=== PATIENT | female | born 1970 | race Caucasian/White ===

== ENCOUNTER 2019-06-08 13:01 | Emergency (ER) | payer OTHER ==
[~2019-06-08] VITALS: Ht 147.3 cm; Wt 75.8 kg
[~2019-06-08 13:01] MED LIST: Flonase 0.05% N16 GM
== END 2019-06-08 15:20 | disposition home or self-care (01) ==
LOC: ER 13:01
DX: G43.909 Migraine, unspecified, not intractable, without status migrainosus (principal); F17.210 Nicotine dependence, cigarettes, uncomplicated; Z91.048 Other nonmedicinal substance allergy status; Z91.040 Latex allergy status
CPT/HCPCS: 96361; 96374; 96375; 99283-25; J0780; J1200; J1885; J7030

== ENCOUNTER 2020-04-08 07:34 | Day surgery (SDC) | payer OTHER ==
--- NOTE | 2020-04-08 08:34 | NUR ---
Ambulatory in Day Surgery History, Chart, Medications and Allergies reviewed before start of procedure. Lungs clear T/O to Auscultation. Patient confirms NPO status and agrees with scheduled surgery. Pre-Op teaching done. Pt verbalizes understanding.
--- NOTE | 2020-04-08 09:19 | NUR ---
Patient up to Ambulate independently. Gait steady. Discharge instructions reviewed with patient. Patient verbalizes understanding. Copy given to patient to take home.
== END 2020-04-08 23:13 | disposition home or self-care (01) ==
LOC: ORD 07:34 → CT 07:34 → ORD 08:30 → CT 09:00 → ORD 23:13
DX: R06.09 Other forms of dyspnea (principal); I20.9 Angina pectoris, unspecified; Q24.5 Malformation of coronary vessels; E66.9 Obesity, unspecified; Z87.891 Personal history of nicotine dependence; Z88.8 Allergy status to other drugs, medicaments and biological substances; Z91.040 Latex allergy status; Z68.37 Body mass index [BMI] 37.0-37.9, adult
CPT/HCPCS: 75574; Q9967

== ENCOUNTER 2020-06-23 12:44 | Day surgery (SDC) | payer OTHER ==
[~2020-06-23] VITALS: Wt 77.6 kg
[~2020-06-23 12:44] MED LIST changes: +ATIVAN0.5 MG PO; +HYDCHL12.5 PO; +MAXALT10 MG PO; +MELO7.5 PO; +OXYB5 PO
== END 2020-06-23 15:34 | disposition home or self-care (01) ==
LOC: ORSCSDS 12:44
PROVIDERS: Surgery
PROC: 0HB1XZX Excision of Face Skin, External Approach, Diagnostic (ICD-10-PCS; principal; 2020-06-23 14:00)
DX: L72.0 Epidermal cyst (principal); Z87.891 Personal history of nicotine dependence; E66.9 Obesity, unspecified; Z68.35 Body mass index [BMI] 35.0-35.9, adult
CPT/HCPCS: 88304; J0690; J1100; J1885; J2250; J2405; J2704; J3010; J7120

== ENCOUNTER 2020-10-24 10:40 | Emergency (ER) | payer OTHER ==
[~2020-10-24] VITALS: Ht 147.3 cm; Wt 79.4 kg
[2020-10-24 11:20] LABS: BASOPHILS ABSOLUTE AUTO 0.04 K/mm3 (0.00-0.23); BASOPHILS PERCENT AUTO 1 % (0-2); EOSINOPHILS ABSOLUTE AUTO 0.12 K/mm3 (0.00-0.68); EOSINOPHILS PERCENT AUTO 2 % (0-6); Hemoglobin 13.8 g/dL (11.5-16.0); IMMATURE GRAN ABSOLUTE AUTO 0.01 K/mm3 (0.00-0.10); IMMATURE GRAN PERCENT AUTO 0 % (0-1); LYMPHOCYTES ABSOLUTE AUTO 2.43 K/mm3 (0.84-5.20); LYMPHOCYTES PERCENT AUTO 39 % (21-46); MONOCYTES ABSOLUTE AUTO 0.45 K/mm3 (0.16-1.47); MONOCYTES PERCENT AUTO 7 % (4-13); Mean Corpuscular HGB 32.2 pg (26.0-34.0); Mean Corpuscular HGB Conc 35.4 g/dL (31.5-36.5); Mean Corpuscular Volume 91 fL (80-100); Mean Platelet Volume 11.2 fL (9.1-12.4); NEUTROPHILS ABSOLUTE AUTO 3.25 K/mm3 (1.96-9.15); NEUTROPHILS PERCENT AUTO 52 % (41-73); Platelet Count 292 K/mm3 (150-400); RDW Coefficient Variation 11.8 % (11.7-14.2); Red Blood Cell Count 4.29 M/mm3 (3.80-5.20)
[2020-10-24 11:34] LABS: Alanine Aminotransfer (ALT/SGP 43 U/L (12-78); Albumin/Globulin Ratio 1.2 (0.8-1.8); Alk Phos 95 U/L (50-136); Anion Gap 7 mmol/L (6-16); Aspartate Aminotrans (AST/SGOT 26 U/L (12-37); Bilirubin, Total 0.5 mg/dL (0.1-1.0); Blood Urea Nitrogen 17 mg/dL (8-24); Bun/Creatinine Ratio 28.9 (12.0-20.0); CO2, Blood 24 mmol/L (21-32); Calcium, Blood 8.5 mg/dL (8.5-10.1); Chloride, Blood 103 mmol/L (98-108); Creatinine, Blood 0.59 mg/dL (0.40-1.00); Globulin, Blood 3.3 g/dL (2.2-4.0); Glomerular Filtration Rate >60 (60-); Glucose, Blood 101 mg/dL (70-99); Potassium, Blood 3.5 mmol/L (3.5-5.5); Sodium, Blood 134 mmol/L (136-145); Total Protein, Blood 7.3 g/dL (6.4-8.2); Troponin I <0.015 ng/mL (0.000-0.040)
== END 2020-10-24 15:06 | disposition home or self-care (01) ==
LOC: ER 10:40
PROVIDERS: Physician Assistant
DX: R07.9 Chest pain, unspecified (principal); Z91.040 Latex allergy status; Z91.09 Other allergy status, other than to drugs and biological substances
CPT/HCPCS: 36415; 71046; 80053; 84484; 85025; 93005; 93010; 99285-25

== ENCOUNTER 2021-10-16 15:12 | Emergency (ER) | payer OTHER ==
[~2021-10-16] VITALS: Ht 147.3 cm; Wt 79.4 kg
[2021-10-16 15:48] LABS: BASOPHILS ABSOLUTE AUTO 0.06 K/mm3 (0.00-0.23); BASOPHILS PERCENT AUTO 1 % (0-2); EOSINOPHILS ABSOLUTE AUTO 0.14 K/mm3 (0.00-0.68); EOSINOPHILS PERCENT AUTO 2 % (0-6); Hematocrit 40.8 % (33.0-51.0); Hemoglobin 14.8 g/dL (11.5-16.0); IMMATURE GRAN ABSOLUTE AUTO 0.01 K/mm3 (0.00-0.10); IMMATURE GRAN PERCENT AUTO 0 % (0-1); LYMPHOCYTES ABSOLUTE AUTO 3.17 K/mm3 (0.84-5.20); LYMPHOCYTES PERCENT AUTO 37 % (21-46); MONOCYTES ABSOLUTE AUTO 0.48 K/mm3 (0.16-1.47); MONOCYTES PERCENT AUTO 6 % (4-13); Mean Corpuscular HGB 32.3 pg (26.0-34.0); Mean Corpuscular HGB Conc 36.3 g/dL (31.5-36.5); Mean Corpuscular Volume 89 fL (80-100); Mean Platelet Volume 10.7 fL (9.1-12.4); NEUTROPHILS ABSOLUTE AUTO 4.72 K/mm3 (1.96-9.15); NEUTROPHILS PERCENT AUTO 55 % (41-73); Platelet Count 304 K/mm3 (150-400); RDW Coefficient Variation 11.6 % (11.7-14.2); RDW Standard Deviation 37.5 fL (35.1-46.3); Red Blood Cell Count 4.58 M/mm3 (3.80-5.20); White Blood Cell Count 8.58 K/mm3 (4.00-11.30)
[2021-10-16 16:06] LABS: Albumin, Blood 3.7 g/dL (3.4-5.0); Albumin/Globulin Ratio 1.2 (0.8-1.8); Bilirubin, Total 0.5 mg/dL (0.1-1.0); Bun/Creatinine Ratio 23.4 (12.0-20.0); Calcium, Blood 8.7 mg/dL (8.5-10.1); Creatinine, Blood 0.6 mg/dL (0.40-1.00); Globulin, Blood 3.2 g/dL (2.2-4.0); Potassium, Blood 3.7 mmol/L (3.5-5.5); Total Protein, Blood 6.9 g/dL (6.4-8.2)
== END 2021-10-16 18:55 | disposition home or self-care (01) ==
LOC: ER 15:12
PROVIDERS: Physician Assistant
DX: M62.838 Other muscle spasm (principal); R07.89 Other chest pain; Z87.891 Personal history of nicotine dependence; Z91.040 Latex allergy status; Z91.09 Other allergy status, other than to drugs and biological substances; Z79.899 Other long term (current) drug therapy
CPT/HCPCS: 36415; 71045; 80053; 84484; 85025; J1885

== ENCOUNTER 2021-11-16 12:12 | Inpatient (IN) | payer OTHER ==
[~2021-11-16] VITALS: Ht 147.3 cm; Wt 78.2 kg
[2021-11-16 12:35] LABS: Hematocrit 38.7 % (33.0-51.0); Hemoglobin 14.2 g/dL (11.5-16.0); Mean Corpuscular HGB 32.1 pg (26.0-34.0); Mean Corpuscular HGB Conc 36.7 g/dL (31.5-36.5); Mean Corpuscular Volume 87 fL (80-100); Mean Platelet Volume 11.2 fL (9.1-12.4); Platelet Count 366 K/mm3 (150-400); RDW Coefficient Variation 11.7 % (11.7-14.2); RDW Standard Deviation 37.2 fL (35.1-46.3); Red Blood Cell Count 4.43 M/mm3 (3.80-5.20); White Blood Cell Count 14.94 K/mm3 (4.00-11.30)
[2021-11-16 12:40] LABS: Calcium, Ionized (POC) 1.09 mmol/L (1.10-1.46); Chloride (POC) 95 mmol/L (98-108); Creatinine (POC) 0.8 mg/dL (0.6-1.0); Glucose (ISTAT POC) 206 mg/dL (70-99); Hemoglobin (POC) 13.3 g/dL (12.0-16.0); Potassium (POC) 2.7 mmol/L (3.5-5.5); Sodium (POC) 135 mmol/L (135-148); Total CO2 (POC) 26 mmol/L (21-32)
[2021-11-16 12:58] LABS: BAND PERCENT MAN 1 % (0-8); BASOPHILS PERCENT MAN 0 % (0-2); EOSINOPHILS ABSOLUTE MAN 0.14 K/mm3 (0.00-0.68); EOSINOPHILS PERCENT MAN 1 % (0-6); LYMPHOCYTES ABSOLUTE MAN 5.52 K/mm3 (0.84-5.20); LYMPHOCYTES PERCENT MAN 37 % (21-46); MONOCYTES ABSOLUTE MAN 0.44 K/mm3 (0.16-1.47); MONOCYTES PERCENT MAN 3 % (4-13); NEUTROPHILS ABSOLUTE MAN 8.81 K/mm3 (1.96-9.15); SEG NEUTROPHILS PERCENT MAN 58 % (41-73); TOTAL CELLS COUNTED 100
[2021-11-16 13:07] LABS: LDL/HDL RATIO 3.3; Magnesium, Blood 2.4 mg/dL (1.6-2.4)
[2021-11-16 13:08] LABS: Alanine Aminotransfer (ALT/SGP 54 U/L (12-78); Albumin, Blood 3.7 g/dL (3.4-5.0); Albumin/Globulin Ratio 1.1 (0.8-1.8); Alk Phos 121 U/L (50-136); Anion Gap 15 mmol/L (6-16); Aspartate Aminotrans (AST/SGOT 29 U/L (12-37); Bilirubin, Total 0.6 mg/dL (0.1-1.0); Blood Urea Nitrogen 17 mg/dL (8-24); Bun/Creatinine Ratio 23.9 (12.0-20.0); CHOL/HDL RATIO 5.1; CO2, Blood 25 mmol/L (21-32); Calcium, Blood 9.1 mg/dL (8.5-10.1); Chloride, Blood 97 mmol/L (98-108); Cholesterol 249 mg/dL (50-200); Creatinine, Blood 0.71 mg/dL (0.40-1.00); Globulin, Blood 3.4 g/dL (2.2-4.0); Glomerular Filtration Rate 102 (60-); Glucose, Blood 213 mg/dL (70-99); HDL Cholesterol 49 mg/dL (>39); Low Density Lipoprotein Chol 163 mg/dL (0-110); Potassium, Blood 2.7 mmol/L (3.5-5.5); Sodium, Blood 137 mmol/L (136-145); Total Protein, Blood 7.1 g/dL (6.4-8.2); Triglycerides 184 mg/dL (30-160); Very Low Density Lipoprot Chol 36 mg/dL (6-32)
--- NOTE | 2021-11-16 14:25 | NUR ---
RECEIVED PT FROM GAS CUTTING MACHINE OPERATOR VIA [facility]. PT IS A&OX4. PT DENIES CP OR SOB AT ADMIT TO ICU. ECG SHOWS SR WITH RATE 80-90'S. SBP 110'S-120'S. DP/PT PULSES 2+. NO NOTED EDEMA. RIGHT REMORAL ANGIO-SEALSITE CLEAR/NO BLEEDING, TENDERNESS, OR HEMATOMA. LUNGS CLEAR. NO NOTED COUGH. SATS>90% ON RA. PT DENIES GI DISTRESS. TOLERATING SIPS OF WATER WELL. PT STATES THAT SHE IS NOT HUNGRY AT THIS TIME. PT DENIES NEED NOT VOID WELL. PT AND DAUGHTER ORIENTED TO ROOM AND ICU PROCEDURE. PT REMINDED OF NEED TO KEEP SUPINE FOR NOW. PT VERBALIZES AND DEMONSTRATES UNDERSTANDING. CALL LIGHT WITHIN REACH. PT AGREES TO CALL FOR ASSISTANCE IF CHEST PAIN OR SOB.
--- NOTE | 2021-11-16 16:43 | NUR ---
PT DENIES CP OR SOB. RIGHT FEMORAL ANGIO-SEAL SITE CLEAR-NO BLEEDING OR HEMATOMA.
--- NOTE | 2021-11-16 19:05 | NUR ---
Assumed care. Report received from eliza LUNDY. Pt resting in bed att. On room air, IV access in L/AC and R/forearm. R/femoral access site nontender, dressing c/d/i, no swelling. Pt denies chest pain at this time. VS stable, will continue to monitor.
[2021-11-17 04:01] LABS: Hematocrit 37.9 % (33.0-51.0); Hemoglobin 13.7 g/dL (11.5-16.0); Mean Corpuscular HGB 32.4 pg (26.0-34.0); Mean Corpuscular HGB Conc 36.1 g/dL (31.5-36.5); Mean Corpuscular Volume 90 fL (80-100); Mean Platelet Volume 11.1 fL (9.1-12.4); Platelet Count 301 K/mm3 (150-400); RDW Coefficient Variation 11.9 % (11.7-14.2); RDW Standard Deviation 38.1 fL (35.1-46.3); Red Blood Cell Count 4.23 M/mm3 (3.80-5.20); White Blood Cell Count 9.47 K/mm3 (4.00-11.30)
[2021-11-17 04:05] LABS: Bun/Creatinine Ratio 20.5 (12.0-20.0); Calcium, Blood 8.5 mg/dL (8.5-10.1); Creatinine, Blood 0.58 mg/dL (0.40-1.00); Potassium, Blood 3.5 mmol/L (3.5-5.5)
--- NOTE | 2021-11-17 06:26 | NUR ---
Shift summary. Pt rested in bed throughout shift. Alert and oriented, on room air. VS stable, no changes during shift. See assessment for further details. Will continue to monitor and report off to dayshift RN.
--- NOTE | 2021-11-17 07:00 | NUR ---
PT A&OX4. NO COMPLAINTS OF CHEST PAIN OR SOB. ECG SHOWS SR WITH RATE 80'S. BP STABLE. NO NOTED EDEMA. RIGHT FEMORAL ANGIO-SEAL SITE CLEAR. PT UP IN ROOM TO BRP AND ADL'S WITHOUT DIFFICULTY. LUNGS CLEAR. SATS>90% ON RA. NO COUGH. PT DENIES GI DISTRESS. UP TO CHAIR FOR BREAKFAST AFTER ADL'S COMPLETED. CALL LIGHT WITHIN REACH. PT AGREES TO CALL FOR ASSIST PRN.
--- NOTE | 2021-11-17 09:40 | NUR ---
ECHO IN PROGRESS.
--- NOTE | 2021-11-17 10:57 | NUR ---
Echocardiogram completed.
--- NOTE | 2021-11-17 10:59 | NUR ---
Pt. is awake in bed and welcomes my visit. Pt. is pleasant and verbalizes hope of discharge today. Establish rapport and share pastoral corrections counselor. Prayed with Pt. Pt. verbaliszed gratitude for the spiritual care visit.
--- NOTE | 2021-11-17 11:00 | NUR ---
VSS. PT DENIES COMPLAINT AT THIS TIME. PT STATES "I JUST WANT TO NAP." PT AGREES TO CALL FOR ASSIST.
--- NOTE | 2021-11-17 11:53 | NUR ---
PT REPORTS 6/10 HEADACHE. GIVEN TYLENOL 1000 MG PO X 1-SEE EMAR. PT ALSO GIVEN TEA PER HER REQUEST.
--- NOTE | 2021-11-17 12:26 | NUR ---
PT ATE 100% OF LUNCH AND APPEARS TO BE SLEEPING AT THIS TIME.
--- NOTE | 2021-11-17 16:35 | NUR ---
PT AMBULATED THROUGH OUT ICU AND TO PCU WITHOUT DIFFICULTY. PT DENIES CP OR SOB. VSS. DR. CHAPIN UPDATED. PLAN FOR DISCHARGE LATER TODAY.
[2021-11-17] MEDS ORDERED: ASPI81CH PO (18:19)
[2021-11-17] MEDS ORDERED: ATOR20 PO (18:20)
[2021-11-17] MEDS ORDERED: TICA90TA PO (18:20)
--- NOTE | 2021-11-17 18:45 | NUR ---
ORDERS RECEIVED TO DISCHARGE PT HOME. RX'S CALLED TO [facility] PER PT. VERBAL AND WRITTEN DC INSTRUCTIONS GIVEN TO PT WITH CLEAR UNDERSTANDING. VSS. RIGHT GROIN CHECK WNL. AWAITING RIDE HOME.
== END 2021-11-17 19:15 | disposition home or self-care (01) | DRG 247 ==
LOC: ER 12:12 → ICUW 12:25 → ICUE 13:35
PROVIDERS: Emergency Medicine; ADMIT Internal Medicine Interventional Cardiology
PROC: 027034Z Dilation of Coronary Artery, One Artery with Drug-eluting Intraluminal Device, Percutaneous Approach (ICD-10-PCS; principal; 2021-11-16)
PROC: 4A023N7 Measurement of Cardiac Sampling and Pressure, Left Heart, Percutaneous Approach (ICD-10-PCS; 2021-11-16)
PROC: 03CY3ZZ Extirpation of Matter from Upper Artery, Percutaneous Approach (ICD-10-PCS; 2021-11-16)
PROC: B2111ZZ Fluoroscopy of Multiple Coronary Arteries using Low Osmolar Contrast (ICD-10-PCS; 2021-11-16)
PROC: B240ZZ3 Ultrasonography of Single Coronary Artery, Intravascular (ICD-10-PCS; 2021-11-16)
DX: I21.3 ST elevation (STEMI) myocardial infarction of unspecified site (principal); I25.10 Atherosclerotic heart disease of native coronary artery without angina pectoris; I10 Essential (primary) hypertension; F41.9 Anxiety disorder, unspecified; E78.5 Hyperlipidemia, unspecified; F17.210 Nicotine dependence, cigarettes, uncomplicated; Z91.09 Other allergy status, other than to drugs and biological substances; Z91.040 Latex allergy status; Z71.6 Tobacco abuse counseling; Z79.899 Other long term (current) drug therapy; Z98.891 History of uterine scar from previous surgery; Z98.890 Other specified postprocedural states
CPT/HCPCS: 36415; 71045; 76937; 80047; 80048; 80053; 80061; 83735; 84484; 85014; 85025; 85027; 86850; 86900; 86901; 92978; 93005; 93010; 93306; 93458; 96374; 99152; 99153; 99285-25; A9270; C1725; C1753; C1757; C1760; C1769; C1874; C1887; C1894; C9606; J1644; J2250; J3010; J3246; J3480; J7030; J7040; Q9967

== ENCOUNTER → 2021-11-25 | Outpatient (CLI) | payer OTHER ==
[~2021-11-25] MED LIST changes: +ASPI81CH PO; +ATOR20 PO; +TICA90TA PO
== END | disposition home or self-care (01) ==
LOC: LAB SHORT 08:06 → PLD 08:06
DX: L98.9 Disorder of the skin and subcutaneous tissue, unspecified (principal)
CPT/HCPCS: 88305

== ENCOUNTER 2022-03-02 16:03 | Emergency (ER) | payer OTHER ==
[~2022-03-02] VITALS: Ht 147.3 cm; Wt 74.8 kg
[2022-03-02 17:07] LABS: Albumin, Blood 3.9 g/dL (3.4-5.0); Albumin/Globulin Ratio 1.1 (0.8-1.8); Bilirubin, Total 0.6 mg/dL (0.1-1.0); Calcium, Blood 9.3 mg/dL (8.5-10.1); Creatinine, Blood 0.58 mg/dL (0.40-1.00); Globulin, Blood 3.5 g/dL (2.2-4.0); Potassium, Blood 3.4 mmol/L (3.5-5.5); Total Protein, Blood 7.4 g/dL (6.4-8.2)
[2022-03-02 19:36] LABS: BASOPHILS ABSOLUTE AUTO 0.04 K/mm3 (0.00-0.23); BASOPHILS PERCENT AUTO 1 % (0-2); EOSINOPHILS ABSOLUTE AUTO 0.11 K/mm3 (0.00-0.68); EOSINOPHILS PERCENT AUTO 2 % (0-6); Hematocrit 39.4 % (33.0-51.0); Hemoglobin 14.1 g/dL (11.5-16.0); IMMATURE GRAN ABSOLUTE AUTO 0.01 K/mm3 (0.00-0.10); IMMATURE GRAN PERCENT AUTO 0 % (0-1); LYMPHOCYTES ABSOLUTE AUTO 1.85 K/mm3 (0.84-5.20); LYMPHOCYTES PERCENT AUTO 27 % (21-46); MONOCYTES ABSOLUTE AUTO 0.45 K/mm3 (0.16-1.47); MONOCYTES PERCENT AUTO 7 % (4-13); Mean Corpuscular HGB 32.7 pg (26.0-34.0); Mean Corpuscular HGB Conc 35.8 g/dL (31.5-36.5); Mean Corpuscular Volume 91 fL (80-100); Mean Platelet Volume 11.2 fL (9.1-12.4); NEUTROPHILS ABSOLUTE AUTO 4.36 K/mm3 (1.96-9.15); NEUTROPHILS PERCENT AUTO 64 % (41-73); Platelet Count 307 K/mm3 (150-400); RDW Coefficient Variation 12.2 % (11.7-14.2); RDW Standard Deviation 40.6 fL (35.1-46.3); Red Blood Cell Count 4.31 M/mm3 (3.80-5.20); White Blood Cell Count 6.82 K/mm3 (4.00-11.30)
[2022-03-02] MEDS ORDERED: HYDCHL25 PO (20:05)
[2022-03-02] MEDS ORDERED: Cyclobenzaprine5 MG PO (20:06)
== END 2022-03-02 20:58 | disposition home or self-care (01) ==
LOC: ER 16:03
PROVIDERS: Physician Assistant
DX: R07.89 Other chest pain (principal); F17.210 Nicotine dependence, cigarettes, uncomplicated; Z91.040 Latex allergy status; Z91.048 Other nonmedicinal substance allergy status; Z79.82 Long term (current) use of aspirin; Z79.899 Other long term (current) drug therapy
CPT/HCPCS: 36415; 71045; 80053; 83880; 84484; 85025; 93005; 93010

== ENCOUNTER → 2022-09-13 | Outpatient (CLI) | payer OTHER ==
[~2022-09-13] MED LIST changes: +Cyclobenzaprine5 MG PO; +HYDCHL25 PO
[2022-09-13 19:29] LABS: Bun/Creatinine Ratio 21.6 (12.0-20.0); Creatinine, Blood 0.6 mg/dL (0.40-1.00); Potassium, Blood 3.3 mmol/L (3.5-5.5)
== END | disposition home or self-care (01) ==
LOC: LAB SHORT 14:30 → LAB 14:30
PROVIDERS: Student in an Organized Health Care Education/Training Program
DX: R60.0 Localized edema (principal)
CPT/HCPCS: 80048

== ENCOUNTER 2022-12-20 10:14 | Emergency (ER) | payer OTHER ==
[~2022-12-20] VITALS: Ht 149.9 cm; Wt 73.0 kg
[2022-12-20] MEDS ORDERED: METOPROLOL SUCC25 MG PO (10:35)
[2022-12-20 10:45] LABS: BASOPHILS ABSOLUTE AUTO 0.05 K/mm3 (0.00-0.23); BASOPHILS PERCENT AUTO 1 % (0-2); EOSINOPHILS ABSOLUTE AUTO 0.07 K/mm3 (0.00-0.68); EOSINOPHILS PERCENT AUTO 1 % (0-6); Hematocrit 37.7 % (33.0-51.0); Hemoglobin 13.4 g/dL (11.5-16.0); IMMATURE GRAN ABSOLUTE AUTO 0.02 K/mm3 (0.00-0.10); IMMATURE GRAN PERCENT AUTO 0 % (0-1); LYMPHOCYTES PERCENT AUTO 36 % (21-46); MONOCYTES ABSOLUTE AUTO 0.55 K/mm3 (0.16-1.47); MONOCYTES PERCENT AUTO 7 % (4-13); Mean Corpuscular HGB 33.6 pg (26.0-34.0); Mean Corpuscular HGB Conc 35.5 g/dL (31.5-36.5); Mean Corpuscular Volume 95 fL (80-100); Mean Platelet Volume 11.2 fL (9.1-12.4); NEUTROPHILS ABSOLUTE AUTO 4.08 K/mm3 (1.96-9.15); NEUTROPHILS PERCENT AUTO 55 % (41-73); Platelet Count 270 K/mm3 (150-400); RDW Coefficient Variation 12.1 % (11.7-14.2); RDW Standard Deviation 42.2 fL (35.1-46.3); Red Blood Cell Count 3.99 M/mm3 (3.80-5.20); White Blood Cell Count 7.47 K/mm3 (4.00-11.30)
[2022-12-20 11:13] LABS: Albumin, Blood 3.9 g/dL (3.4-5.0); Albumin/Globulin Ratio 1.2 (0.8-1.8); Bilirubin, Total 0.5 mg/dL (0.1-1.0); Bun/Creatinine Ratio 17.8 (12.0-20.0); Calcium, Blood 8.9 mg/dL (8.5-10.1); Creatinine, Blood 0.68 mg/dL (0.40-1.00); Globulin, Blood 3.3 g/dL (2.2-4.0); Potassium, Blood 3.9 mmol/L (3.5-5.5); Total Protein, Blood 7.2 g/dL (6.4-8.2)
[2022-12-20 13:18] VITALS: BP 129/66
== END 2022-12-20 13:23 | disposition home or self-care (01) ==
LOC: ER 10:14
PROVIDERS: Emergency Medicine
DX: R07.2 Precordial pain (principal); Z77.22 Contact with and (suspected) exposure to environmental tobacco smoke (acute) (chronic); Z91.040 Latex allergy status; Z91.09 Other allergy status, other than to drugs and biological substances; Z79.82 Long term (current) use of aspirin; Z79.899 Other long term (current) drug therapy; I25.2 Old myocardial infarction
CPT/HCPCS: 71046; 80053; 84484; 85025; 93005; 93010; 99285-25

== ENCOUNTER 2023-01-15 07:53 | Day surgery (SDC) | payer OTHER ==
[~2023-01-15] VITALS: Ht 148 cm; Wt 73.8 kg
[2023-01-15] VITALS (20 sets, daily range): BP systolic 90–129; BP diastolic 52–79
[~2023-01-15 07:53] MED LIST changes: +ALDACTONE25 MG PO; +METOPROLOL SUCC25 MG PO
[2023-01-15] MEDS ORDERED: TRAZ100 PO (08:47)
--- NOTE | 2023-01-15 09:57 | NUR ---
Ambulatory in Day Surgery. Surgical site prepped with 2% Chlorhexidine cloth wipe. Patient reports completing Chlorhexadine shower X2 prior to admission to hospital. History, Chart, Medications and Allergies reviewed before start of procedure. Lungs clear T/O to Auscultation. Patient confirms NPO status and agrees with scheduled surgery. Pre-Op teaching done. Pt verbalizes understanding.
--- NOTE | 2023-01-15 13:05 | NUR ---
PT ARRIVED TO THE ROOM FROM PACU AT APPROXIMATELY 1255. PT DENIES PAIN. SPINAL ANESTHESIA STILL IN EFFECT. PT TOLERATING PO. PT EDUCATED TO USE THE CALL LIGHT, CALL LIGHT WITHIN REACH.
--- NOTE | 2023-01-15 19:50 | NUR ---
SHIFT SUMMARY PT IS POD#0 FROM R TKA WITH DR. BARKSDALE. PAIN MANAGED WITH PO PAIN MEDICATION. PT HAS BEEN ABLE TO VOID POST OP. SHE IS TOLERATING PO. FAMILY WAS AT THE BEDSIDE FOR SUPPORT. REPORT GIVEN TO ETELVINA LUNDY.
[2023-01-16 00:23] VITALS: BP 123/66
[2023-01-16 03:08] VITALS: BP 120/66
[2023-01-16 05:19] LABS: BASOPHILS ABSOLUTE AUTO 0.01 K/mm3 (0.00-0.23); BASOPHILS PERCENT AUTO 0 % (0-2); EOSINOPHILS PERCENT AUTO 0 % (0-6); Hematocrit 31.8 % (33.0-51.0); Hemoglobin 11.2 g/dL (11.5-16.0); IMMATURE GRAN ABSOLUTE AUTO 0.05 K/mm3 (0.00-0.10); IMMATURE GRAN PERCENT AUTO 0 % (0-1); LYMPHOCYTES ABSOLUTE AUTO 1.22 K/mm3 (0.84-5.20); LYMPHOCYTES PERCENT AUTO 9 % (21-46); MONOCYTES ABSOLUTE AUTO 0.84 K/mm3 (0.16-1.47); MONOCYTES PERCENT AUTO 7 % (4-13); Mean Corpuscular HGB 33.4 pg (26.0-34.0); Mean Corpuscular HGB Conc 35.2 g/dL (31.5-36.5); Mean Corpuscular Volume 95 fL (80-100); Mean Platelet Volume 11.7 fL (9.1-12.4); NEUTROPHILS ABSOLUTE AUTO 10.81 K/mm3 (1.96-9.15); NEUTROPHILS PERCENT AUTO 84 % (41-73); Platelet Count 237 K/mm3 (150-400); RDW Coefficient Variation 11.9 % (11.7-14.2); RDW Standard Deviation 40.5 fL (35.1-46.3); Red Blood Cell Count 3.35 M/mm3 (3.80-5.20); White Blood Cell Count 12.93 K/mm3 (4.00-11.30)
[2023-01-16 05:41] LABS: Bun/Creatinine Ratio 16.8 (12.0-20.0); Calcium, Blood 8.4 mg/dL (8.5-10.1); Creatinine, Blood 0.59 mg/dL (0.40-1.00); Magnesium, Blood 1.9 mg/dL (1.6-2.4)
[2023-01-16 06:55] VITALS: BP 99/62
--- NOTE | 2023-01-16 07:00 | NUR ---
SHIFT SUMMARY POD 1 R TKA, AQUACEL C/D/I, POLAR RASHARD IN PLACE, PT UP TO CHAIR DURING NIGHT R/T HIP PAIN. AMB W/ FWW AND SBA TO BATHROOM, TOLERATING WELL. NO ACUTE CHANGES THIS SHIFT, PLANS FOR DISCHARGE TODAY. CALL LIGHT W/IN REACH.
--- NOTE | 2023-01-16 11:52 | NUR ---
SHIFT SUMMARY POD1 R TKA, A/OX4, VSS, TOLERATING PO, VSS, PAIN MANAGED PER EMAR, VOIDING WELL. WORKED WITH THERAPY THIS AM, DRESSING TO R KNEE X2 ARE C/D/I, PROVIDED HER WITH AN EXTRA SET OF DRESSINGS TO CHANGE IN ONE WEEK PER MD DIRECTION, IV REMOVED PRIOR TO DISCHARGE. DISCUSSED DISCHARGE INFORMATION WITH HER INCLUDING HOME CARE, MEDICATIONS, AND FOLLOW UP APPOINTMENTS. NO QUESTIONS AT THIS TIME. ESCORTED OUT WITH ALL PERSONAL POSESSIONS.
== END 2023-01-16 10:52 | disposition home or self-care (01) ==
LOC: ORSCMMR 07:53 → ORD 10:15 → ORSCMMR 10:15 → ORD 10:30 → SURS 12:46 → ORSCMMR 01-16 10:52
PROVIDERS: Orthopaedic Surgery
PROC: 0SRC0JA Replacement of Right Knee Joint with Synthetic Substitute, Uncemented, Open Approach (ICD-10-PCS; principal; 2023-01-15 10:15)
DX: M17.11 Unilateral primary osteoarthritis, right knee (principal); Z87.891 Personal history of nicotine dependence; I25.10 Atherosclerotic heart disease of native coronary artery without angina pectoris; I25.2 Old myocardial infarction; Z79.899 Other long term (current) drug therapy; Z79.82 Long term (current) use of aspirin
CPT/HCPCS: 36415; 73560-RT; 80048; 83735; 85025; 97110; 97116; 97162; A9270; C1776; J0171; J0690; J0735; J1100; J1885; J2250; J2371; J2405; J2704; J2795; J3010; J7120

== ENCOUNTER 2024-05-29 09:23 | Day surgery (SDC) | payer OTHER ==
[~2024-05-29] VITALS: Ht 149.9 cm; Wt 67.8 kg
[2024-05-29] VITALS (19 sets, daily range): BP systolic 95–147; BP diastolic 45–108
[~2024-05-29 09:23] MED LIST changes: +Lactated Ringer's 1,000 ML IV SCH; +MULVITA PO; +TRAZ100 PO
[2024-05-29] MEDS ORDERED: propofoL 40 ML IV ONE (09:39)
--- NOTE | 2024-05-29 09:50 | NUR ---
History, Chart, Medications and Allergies reviewed before start of procedure. Lungs clear T/O to Auscultation. Patient states colon prep results clear. Patient confirms NPO status and agrees with scheduled surgery. Pre-Op teaching done. Pt verbalizes understanding.
--- NOTE | 2024-05-29 09:58 | NUR ---
05/29/24 0958 Araceli Lucas CONFIRMED AND REVIEWED H&P, MEDCICATIONS, ALLERGIES, MEDICAL HISTORY, RESPIRATORY HISTORY, VITAL SIGNS, 3-LEAD EKG, CONSENTS, AND PHYSICIAN ORDERS. PATIENT CONFIRMS NPO STATUS AND AGREES WITH SCHEDULED PROCEDURE. MONITOR INTACT WITH CONTINUOUS PULSE OXIMETRY, CAPNOGRAPHY, 3-LEAD EKG, INTERMITTENT BP. SUPPLEMENTAL O2 TO BE TITRATED THROUGHOUT PROCEDURE TO MAINTAIN O2 SATURATION ABOVE 90%. PATIENT DETERMINED TO BE ASA APPROPRIATE FOR PROPOFOL SEDATION PRIOR TO START OF PROCEDURE BY DR. SALGUERO.
[2024-05-29] MEDS ORDERED: Midazolam HCl 1MG / ML 2ML Vial ONE (10:01)
--- NOTE | 2024-05-29 10:48 | NUR ---
Discharge instructions reviewed with patient. Patient verbalizes understanding. Copy given to patient to take home. Patient States Post-Procedure ride home has been arranged. Discharged via wheelchair to private car for ride home.
== END 2024-05-29 10:50 | disposition home or self-care (01) ==
LOC: ORSCMMR 09:23 → ORD 11:00
PROVIDERS: Internal Medicine Gastroenterology
PROC: 0DBK8ZX Excision of Ascending Colon, Via Natural or Artificial Opening Endoscopic, Diagnostic (ICD-10-PCS; principal; 2024-05-29 11:00)
PROC: 0DBN8ZX Excision of Sigmoid Colon, Via Natural or Artificial Opening Endoscopic, Diagnostic (ICD-10-PCS; principal; 2024-05-29 11:00)
PROC: 0DBM8ZX Excision of Descending Colon, Via Natural or Artificial Opening Endoscopic, Diagnostic (ICD-10-PCS; principal; 2024-05-29 11:00)
DX: Z12.11 Encounter for screening for malignant neoplasm of colon (principal); D12.2 Benign neoplasm of ascending colon; D12.4 Benign neoplasm of descending colon; D12.5 Benign neoplasm of sigmoid colon; K64.4 Residual hemorrhoidal skin tags; I25.2 Old myocardial infarction; I25.10 Atherosclerotic heart disease of native coronary artery without angina pectoris; Z79.899 Other long term (current) drug therapy; Z79.82 Long term (current) use of aspirin
CPT/HCPCS: 88305; J2250; J2704; J7120

== ENCOUNTER 2024-09-08 07:06 | Day surgery (SDC) | payer OTHER ==
[~2024-09-08] VITALS: Ht 147.3 cm; Wt 70.4 kg
[2024-09-08] VITALS (13 sets, daily range): BP systolic 85–113; BP diastolic 55–85
[~2024-09-08 07:06] MED LIST changes: -Lactated Ringer's 1,000 ML IV SCH; +METO25ER PO
[2024-09-08] MEDS ORDERED: Midazolam HCl 1MG / ML 2ML Vial ONE (07:38)
[2024-09-08] MEDS ORDERED: propofoL 20 ML IV ONE ×3 (07:39→10:15)
[2024-09-08] MEDS ORDERED: Acetaminophen 500 MG Tab PO SCH ×2 (07:40→16:00)
[2024-09-08] MEDS ORDERED: Chlorhexidine Mouth Care 15 ML UDC MT SCH (07:40)
[2024-09-08] MEDS ORDERED: Tranexamic Acid 100 ML IV SCH (07:40)
[2024-09-08] MEDS ORDERED: Ropivacaine 0.5% HCl/Pf 123.125 MG,EPINEPHrine HCL 0.25 MG,Ketorolac Tromethamine 15 MG... INFIL SCH (07:40)
[2024-09-08] MEDS ORDERED: OxyCODONE HCL 10 MG TABCR PO SCH (07:40)
[2024-09-08] MEDS ORDERED: CeFAZolin Sodium 2,000 MG in NS 100 ML IV SCH ×2 (07:40→17:00)
[2024-09-08] MEDS ORDERED: Lactated Ringer's 1,000 ML IV SCH ×2 (07:40→08:40)
--- NOTE | 2024-09-08 08:11 | NUR ---
Ambulatory in Day Surgery. History, Chart, Medications and Allergies reviewed before start of procedure. Patient confirms NPO status and agrees with scheduled surgery. Patient reports completing Chlorhexadine shower X2 prior to admission to hospital. Surgical site prepped with 2% Chlorhexidine cloth wipe.
[2024-09-08] MEDS ORDERED: Fluticasone 0.05% Nasal Spray PRN (08:15)
[2024-09-08] MEDS ORDERED: Metoclopramide HCl 5MG / ML 2ML Vial IV PRN (08:20)
[2024-09-08] MEDS ORDERED: Ondansetron HCl 2 MG / ML 2ML Vial IV PRN (08:20)
[2024-09-08] MEDS ORDERED: Bupivacaine 0.5% HCl 5 MG/ML 30MLVIAL ONE (08:23)
[2024-09-08] MEDS ORDERED: HYDROmorphone HCl/Pf 1MG SYR IV PRN ×3 (08:25→09:30)
[2024-09-08] MEDS ORDERED: Magnesium Hydroxide Conc 10 ML UDC PO PRN (08:25)
[2024-09-08] MEDS ORDERED: DiphenhydrAMINE HCL 25 MG Cap PO PRN (08:25)
[2024-09-08] MEDS ORDERED: Bisacodyl 10 MG Supp PR PRN (08:30)
[2024-09-08] MEDS ORDERED: Promethazine HCl 25 MG Tab PO PRN (08:30)
[2024-09-08] MEDS ORDERED: OxyCODONE HCL 5 MG TAB PO PRN ×2 (08:30)
[2024-09-08] MEDS ORDERED: Aspirin 81 MG Chew PO SCH (09:00)
[2024-09-08] MEDS ORDERED: Atorvastatin 10 MG Tab PO SCH (09:00)
[2024-09-08] MEDS ORDERED: Metoprolol Succinate 25 MG TABCR PO SCH (09:00)
[2024-09-08] MEDS ORDERED: Docusate Sodium 100 MG Cap PO SCH (09:00)
[2024-09-08] MEDS ORDERED: Phenylephrine HCl 100 MCG/ML-NS 10MLSYR (1MG/10ML) ONE ×2 (09:06)
[2024-09-08] MEDS ORDERED: Dexamethasone Sod Phos 10 MG/ML 1ML VIAL ONE (09:29)
[2024-09-08] MEDS ORDERED: ePHEDrine Sulfate 50 MG/ML 1ML Injection IV PRN (09:30)
[2024-09-08] MEDS ORDERED: FentaNYL Citrate 50 MCG/ML 2 ML Injection IV PRN ×2 (09:30)
[2024-09-08] MEDS ORDERED: Labetalol HCL 5 MG/ML 4ML Injection (Single Dose) IV PRN (09:30)
[2024-09-08] MEDS ORDERED: Ondansetron HCl 2 MG / ML 2ML Vial ONE (09:30)
[2024-09-08] MEDS ORDERED: Ketorolac Tromethamine 30mg Vial ONE (10:39)
--- NOTE | 2024-09-08 11:25 | NUR ---
ARRIVAL TO SURGICAL UNIT ARRIVED TO UNIT VIA HOSP BED. A&O x4. STATES NO PAIN OR NAUSEA. UNABLE TO WIGGLE TOES DUE TO SPINAL, PPP. LUNG SOUNDS CLEAR, HRR. INCISION SITE WNL, COLD THERAPY APPLIED. SNACKS AND DRINKS GIVEN.
[2024-09-08] MEDS ORDERED: Ketorolac Tromethamine 15mg Vial IV SCH (12:00)
[2024-09-08] MEDS ORDERED: ACET500 PO (14:14)
[2024-09-08] MEDS ORDERED: OXYC5 PO (14:14)
[2024-09-08] MEDS ORDERED: DOCU100 PO (14:14)
--- NOTE | 2024-09-08 16:40 | NUR ---
DISCHARGE SUMMARY PT TOLERATING FOOD AND FLUIDS WELL. PAIN CONTROLLED. INCISION SITE WNL, AQUACEL DRESSING. VOIDED SUCCESSFULLY. DISCHARGE INSTRUCTIONS REVIEWED AND GIVEN. POLAR PACK SENT. ESCORTED OUT VIA WC.
[2024-09-08] MEDS ORDERED: TraZODone HCl 100 MG Tab PO SCH (21:00)
== END 2024-09-08 16:37 | disposition home or self-care (01) ==
LOC: ORSCMMR 07:06 → ORD 08:30 → SURS 11:28 → ORSCMMR 11:28 → SURS 16:37 → ORSCMMR 16:37
PROVIDERS: Orthopaedic Surgery
PROC: 0SRD0JA Replacement of Left Knee Joint with Synthetic Substitute, Uncemented, Open Approach (ICD-10-PCS; principal; 2024-09-08 08:30)
DX: M17.12 Unilateral primary osteoarthritis, left knee (principal); Z96.651 Presence of right artificial knee joint; I10 Essential (primary) hypertension; I25.10 Atherosclerotic heart disease of native coronary artery without angina pectoris; I25.2 Old myocardial infarction; Z79.899 Other long term (current) drug therapy; Z79.82 Long term (current) use of aspirin
CPT/HCPCS: 73560-LT; 97110; 97116; 97162; A9270; C1776; C1887; J0171; J0690; J0735; J1100; J1885; J2250; J2371; J2405; J2704; J2795; J7120